=== PATIENT | male | born 1965 | race Caucasian/White ===

== ENCOUNTER 2022-12-11 22:01 | Emergency (ER) | payer OTHER ==
--- NOTE | 2022-12-11 22:08 | ERPHSYRPT ---
- History of Present Illness Time Seen by Provider: 12/11/22 22:06 Historian: patient Exam Limitations: no limitations Physician History: This is a 57-year-old white male patient of Dr. Camilo who presents with central, substernal mild ache/pressure that radiates up into his neck bilaterally. It has been present relatively constantly since 10 to 10:30 PM on 12/10/2022. Patient has no cardiac history. He does have a history of hyperlipidemia. He has never had a diagnosis of coronary artery disease. He has no history of family history of blood clots. He was having some associated shortness of breath as well. He has not had a fever or cough. He has had no vo miting or diarrhea. He denies abdominal pain. It is present even at rest. He has not had any recent surgery. Patient took 4 baby aspirin at about 1700 this afternoon Timing/Duration: yesterday Activities at Onset: none Quality: aching, pressure Location: substernal, central Chest Pain Radiation: neck Severity of Pain-Max: mild Severity of Pain-Current: mild Modifying Factors: Improves With: nothing Associated Symptoms: shortness of breath (Mild) Prior Chest Pain/Cardiac Workup: no prior chest pain, no prior cardiac workup Nitro Today/Relief: no nitro taken today Aspirin Treatment Today: 81 mg x 4, provided at home (1700 this afternoon) Allergies/Adverse Reactions: bee pollen Adverse Reaction (Intermediate, Verified 12/11/22 22:19) Swelling Home Medications: Atorvastatin Calcium 40 mg PO HS 12/11/22 [History] PARoxetine HCL [Paxil] 30 mg PO HS 12/11/22 [History] Travel Risk - International Travel Have you traveled outside of the country in past 3 weeks: No - Coronavirus Screening Are you exhibiting any of the following symptoms?: No Close contact with a COVID-19 positive Pt in past 14-21 Days: No - Review of Systems Constitutional: No Symptoms Eyes: No Symptoms Ears, Nose, & Throat: No Symptoms Respiratory: Dyspnea Cardiac: Chest Pain Abdominal/Gastrointestinal: No Symptoms Genitourinary Symptoms: No Symptoms Musculoskeletal: No Symptoms (Mild) Skin: No Symptoms Neurological: No Symptoms Psychological: No Symptoms Endocrine: No Symptoms Hematologic/Lymphatic: No Symptoms Immunological/Allergic: No Symptoms All Other Systems: Reviewed and Negative - Past Medical History Pertinent Past Medical History: Yes - Past Surgical History Past Surgical History: Yes - Nursing Vital Signs Nursing Vital Signs: Initial Vital Signs Temperature 98.7 F 12/11/22 22:02 Pulse Rate 94 H 12/11/22 22:02 Respiratory Rate 20 12/11/22 22:02 Blood Pressure 144/88 12/11/22 22:02 O2 Sat by Pulse Oximetry 96 12/11/22 22:02 Pain Scale Pain Intensity 0 - Physical Exam General Appearance: no apparent distress, alert, anxiety, obese Eye Exam: PERRL/EOMI, eyes nml inspection Ears, Nose, Throat Exam: normal ENT inspection, moist mucous membranes Neck Exam: normal inspection, non-tender, supple, full range of motion Respiratory Exam: normal breath sounds, chest tenderness, lungs clear, airway intact, No respiratory distress Cardiovascular Exam: regular rate/rhythm, normal heart sounds, normal peripheral pulses Gastrointestinal/Abdomen Exam: soft, normal bowel sounds, No tenderness Rectal Exam: not done Back Exam: normal inspection, normal range of motion, No CVA tenderness, No vertebral tenderness Extremity Exam: normal inspection, normal range of motion, pelvis stable Neurologic Exam: alert, oriented x 3, cooperative, 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 nml as tested, normal mood/affect, nml cerebellar function, nml station & gait, sensation nml Skin Exam: normal color, warm, dry Lymphatic Exam: No adenopathy SpO2 Interpretation: normal SpO2: 96 O2 Delivery: Room Air - Course Nursing assessment & vital signs reviewed: Yes EKG Interpreted by Me: RATE (89), Sinus Rhythm, NORMAL AXIS, NORMAL INTERVALS, NORMAL QRS, NORMAL ST-T, Other Ordered Tests: Active Orders 24 hr Category Date Time Status Gas Torch Solderer STAT Care 12/11/22 22:26 Active EKG-ER Only STAT Care 12/11/22 22:25 Active IV Insertion STAT Care 12/11/22 22:25 Active Pulse Oximetry (ED) STAT Care 12/11/22 22:25 Active CHEST 1 VIEW (PORTABLE) Stat Exams 12/11/22 22:47 Taken CBC W DIFF Stat Lab 12/11/22 22:20 Completed CMP Stat Lab 12/11/22 22:20 Completed D-DIMER QUANTITATIVE Stat Lab 12/11/22 22:20 Completed NT PRO BNPII Stat Lab 12/11/22 22:20 Completed PROTIME WITH INR Stat Lab 12/11/22 22:20 Completed TROPONIN Q4H Lab 12/11/22 22:20 Completed TROPONIN Q4H Lab 12/12/22 01:30 Completed TROPONIN Q4H Lab 12/12/22 06:30 Ordered Medication Summary Discontinued Medications Generic Name Dose Route Start Last Admin Trade Name Magan PRN Reason Stop Dose Admin Ceftriaxone Sodium/Dextrose 1 g in 50 mls @ 100 mls/hr 12/11/22 23:00 12/12 01:56 Rocephin 1 Gm-D5w 50 Ml Bag IV 12/11/22 23:29 Infused STAT STA Infusion Ceftriaxone Sodium/Dextrose Confirm 12/11/22 23:03 Rocephin 1 Gm-D5w 50 Ml Bag Administered 12/11/22 23:04 Dose 1 g in 50 mls @ ud IV .STK-MED ONE Morphine Sulfate 2 mg 12/11/22 22:25 12/11/22 22:30 Morphine Sulfate 2 Mg/Ml Inj IV 12/11/22 22:26 2 mg STAT ONE Administration Morphine Sulfate Confirm 12/11/22 22:30 Morphine Sulfate 2 Mg/Ml Inj Administered 12/11/22 22:31 Dose 2 mg .ROUTE .STK-MED ONE Ondansetron HCl 4 mg 12/11/22 22:25 12/11/22 22:30 Ondansetron Hcl 4 Mg/2 Ml Vial IV 12/11/22 22:26 4 mg STAT ONE Administration Ondansetron HCl Confirm 12/11/22 22:29 Ondansetron Hcl 4 Mg/2 Ml Vial Administered 12/11/22 22:30 Dose 4 mg .ROUTE .STK-MED ONE Lab/Rad Data: Laboratory Result Diagrams 12/11/22 22:20 12/11/22 22:20 Laboratory Results 12/12/22 12/11/22 12/11/22 Range/Units 01:30 22:47 22:20 WBC (4.0-10.5) x10^3/uL RBC (4.1-5.6) x10^6/uL Hgb (12.5-18.0) g/dL Hct (42-50) % MCV (78-100) fL MCH (26-32) pg MCHC (32-36) g/dL RDW (11.5-14.0) % Plt Count (150-450) x10^3/uL MPV (7.5-11.0) fL Gran % (36.0-66.0) % Immature Gran % (Auto) (0.00-0.4) % Nucleat RBC Rel Count (0.00-0.1) % Eos # (Auto) (0-0.5) x10^3/uL Immature Gran # (Auto) (0.00-0.03) x10^3u/L Absolute Lymphs (auto) (1.0-4.6) x10^3/uL Absolute Monos (auto) (0.0-1.3) x10^3/uL Absolute Nucleated RBC (0.00-0.01) x10^3u/L Lymphocytes % (24.0-44.0) % Monocytes % (0.0-12.0) % Eosinophils % (0.00-5.0) % Basophils % (0.0-0.4) % Absolute Granulocytes (1.4-6.9) x10^3/uL Basophils # (0-0.4) x10^3/uL PT (9.4-12.5) SECONDS INR (0.8-3.0) D-Dimer (0.0-0.50) mg/L Sodium (137-145) mmol/L Potassium (3.5-5.1) mmol/L Chloride (98-107) mmol/L Carbon Dioxide (22-30) mmol/L Anion Gap (5-15) MEQ/L BUN (9-20) mg/dL Creatinine (0.66-1.25) mg/dL Estimated GFR ML/MIN Glucose (74-106) mg/dL Calcium (8.4-10.2) mg/dL Total Bilirubin (0.2-1.3) mg/dL AST (17-59) U/L ALT (0-50) U/L Alkaline Phosphatase (38-126) U/L Troponin I < 0.012 (0.000-0.034) ng/mL NT-Pro-B Natriuret Pep 72.8 (<300) pg/mL Serum Total Protein (6.3-8.2) g/dL Albumin (3.5-5.0) g/dL Influenza Type A Ag NEGATIVE (NEGATIVE) Influenza Type B Ag NEGATIVE (NEGATIVE) RSV (PCR) NEGATIVE (NEGATIVE) SARS-CoV-2 (PCR) NEGATIVE (NEGATIVE) 12/11/22 12/11/22 12/11/22 Range/Units 22:20 22:20 22:20 WBC (4.0-10.5) x10^3/uL RBC (4.1-5.6) x10^6/uL Hgb (12.5-18.0) g/dL Hct (42-50) % MCV (78-100) fL MCH (26-32) pg MCHC (32-36) g/dL RDW (11.5-14.0) % Plt Count (150-450) x10^3/uL MPV (7.5-11.0) fL Gran % (36.0-66.0) % Immature Gran % (Auto) (0.00-0.4) % Nucleat RBC Rel Count (0.00-0.1) % Eos # (Auto) (0-0.5) x10^3/uL Immature Gran # (Auto) (0.00-0.03) x10^3u/L Absolute Lymphs (auto) (1.0-4.6) x10^3/uL Absolute Monos (auto) (0.0-1.3) x10^3/uL Absolute Nucleated RBC (0.00-0.01) x10^3u/L Lymphocytes % (24.0-44.0) % Monocytes % (0.0-12.0) % Eosinophils % (0.00-5.0) % Basophils % (0.0-0.4) % Absolute Granulocytes (1.4-6.9) x10^3/uL Basophils # (0-0.4) x10^3/uL PT 10.8 (9.4-12.5) SECONDS INR 0.99 (0.8-3.0) D-Dimer 0.21 (0.0-0.50) mg/L Sodium 140 (137-145) mmol/L Potassium 4.1 (3.5-5.1) mmol/L Chloride 103 (98-107) mmol/L Carbon Dioxide 26 (22-30) mmol/L Anion Gap 15.5 H (5-15) MEQ/L BUN 18 (9-20) mg/dL Creatinine 1.18 (0.66-1.25) mg/dL Estimated GFR > 60.0 ML/MIN Glucose 98 (74-106) mg/dL Calcium 8.8 (8.4-10.2) mg/dL Total Bilirubin 0.50 (0.2-1.3) mg/dL AST 36 (17-59) U/L ALT 35 (0-50) U/L Alkaline Phosphatase 95 (38-126) U/L Troponin I < 0.012 (0.000-0.034) ng/mL NT-Pro-B Natriuret Pep (<300) pg/mL Serum Total Protein 7.8 (6.3-8.2) g/dL Albumin 4.5 (3.5-5.0) g/dL Influenza Type A Ag (NEGATIVE) Influenza Type B Ag (NEGATIVE) RSV (PCR) (NEGATIVE) SARS-CoV-2 (PCR) (NEGATIVE) 12/11/22 Range/Units 22:20 WBC 12.0 H (4.0-10.5) x10^3/uL RBC 4.98 (4.1-5.6) x10^6/uL Hgb 15.2 (12.5-18.0) g/dL Hct 46.3 (42-50) % MCV 93.0 (78-100) fL MCH 30.5 (26-32) pg MCHC 32.8 (32-36) g/dL RDW 13.4 (11.5-14.0) % Plt Count 279 (150-450) x10^3/uL MPV 9.6 (7.5-11.0) fL Gran % 67.1 H (36.0-66.0) % Immature Gran % (Auto) 0.2 (0.00-0.4) % Nucleat RBC Rel Count 0.0 (0.00-0.1) % Eos # (Auto) 0.07 (0-0.5) x10^3/uL Immature Gran # (Auto) 0.02 (0.00-0.03) x10^3u/L Absolute Lymphs (auto) 2.96 (1.0-4.6) x10^3/uL Absolute Monos (auto) 0.84 (0.0-1.3) x10^3/uL Absolute Nucleated RBC 0.00 (0.00-0.01) x10^3u/L Lymphocytes % 24.6 (24.0-44.0) % Monocytes % 7.0 (0.0-12.0) % Eosinophils % 0.6 (0.00-5.0) % Basophils % 0.5 (0.0-0.4) % Absolute Granulocytes 8.07 H (1.4-6.9) x10^3/uL Basophils # 0.06 (0-0.4) x10^3/uL PT (9.4-12.5) SECONDS INR (0.8-3.0) D-Dimer (0.0-0.50) mg/L Sodium (137-145) mmol/L Potassium (3.5-5.1) mmol/L Chloride (98-107) mmol/L Carbon Dioxide (22-30) mmol/L Anion Gap (5-15) MEQ/L BUN (9-20) mg/dL Creatinine (0.66-1.25) mg/dL Estimated GFR ML/MIN Glucose (74-106) mg/dL Calcium (8.4-10.2) mg/dL Total Bilirubin (0.2-1.3) mg/dL AST (17-59) U/L ALT (0-50) U/L Alkaline Phosphatase (38-126) U/L Troponin I (0.000-0.034) ng/mL NT-Pro-B Natriuret Pep (<300) pg/mL Serum Total Protein (6.3-8.2) g/dL Albumin (3.5-5.0) g/dL Influenza Type A Ag (NEGATIVE) Influenza Type B Ag (NEGATIVE) RSV (PCR) (NEGATIVE) SARS-CoV-2 (PCR) (NEGATIVE) - Progress Progress: improved Air Movement: good Progress Note: 12/11/22 23:02 Chest x-ray was interpreted by me. There is no evidence of any acute cardiopulmonary process. This patient's medical issue is 1 of moderate complexity. The level of complexity in the work-up performed was based on the review of the patient's past medical history, review of the patient's medication list, review of the patient's drug allergy list, history of present illness, and physical findings on examination. The work-up performed includes a twelve-lead EKG, chest x-ray, CBC, CMP, D-dimer and troponin levels. I reviewed and interpreted the results of the studies. The patient does have a leukocytosis and he has some shortness of breath. His troponin and D-dimer and electrolytes are within normal limits. I did discuss with him the recommendation and benefit of waiting for 3-hour troponin and twelve-lead EKG. He is unsure if he wants to wait. I discussed with him the risk benefits and alternatives to staying and leaving the hospital. I told him he would have to sign out AGAINST MEDICAL ADVICE. Him and his are having a discussion at this time. I will provide him with 1 g of Rocephin intravenously because of his symptoms of shortness of breath and the fact he has leukocytosis of unknown origin. 12/12/22 02:08 repeat 12 lead interpreted by me. no acute ischemia. 3 hr troponin wnl Blood Culture(s) Obtained: No Antibiotics given: Yes Counseled pt/family regarding: lab results, diagnosis, need for follow-up, rad results Medical Desision Making - Independent Historian Additional History obtained from: Spouse - Discussion of managment Reviewed:: Test results Agreed on:: Treatment plan, need for follow-up - Diagnostic Testing Diagnostic test were ordered, analyzed, and reviewed by me: Yes Radiological Interpretation: Interpreted by me - Risk of complications The pt has a mod risk of morbidity or mortality based on: Need for prescription drug management - Departure Departure Disposition: Home Clinical Impression: Chest pain, Shortness of breath, Leukocytosis Condition: Stable Critical Care Time: No Referrals: DAILY CAMILO MD [Primary Care Provider] - Follow up/PCP as directed Instructions: Shortness of Breath (Dyspnea), Chest Pain, Adult ED Additional Instructions: take medication as prescribed. call primary doctor today to make arrangements for follow up evalutation Prescriptions: Cefdinir 300 mg PO BID #14 cap
[2022-12-11] MEDS ORDERED: Zofran 4 MG/2 ML VIAL IV ONE (22:25)
[2022-12-11] MEDS ORDERED: MORPHINE SULFATE 2 MG INJ IV ONE (22:25)
[2022-12-11] MEDS ORDERED: Zofran 4 MG/2 ML VIAL ONE (22:29)
[2022-12-11] MEDS ORDERED: MORPHINE SULFATE 2 MG INJ ONE (22:30)
[2022-12-11 22:31] LABS: Absolute Neutrophil Ct (ANC) 8.07 x10^3/uL (1.4-6.9); BASOPHIL % 0.5 % (0.0-0.4); Basophil (Absolute #) 0.06 x10^3/uL (0-0.4); Eosinophil % 0.6 % (0.00-5.0); Eosinophil (Absolute #) 0.07 x10^3/uL (0-0.5); Hematocrit 46.3 % (42-50); Hemoglobin 15.2 g/dL (12.5-18.0); IMMATURE GRAN # 0.02 x10^3u/L (0.00-0.03); IMMATURE GRAN % 0.2 % (0.00-0.4); Lymphocyte (Absolute #) 2.96 x10^3/uL (1.0-4.6); Lymphocytes % 24.6 % (24.0-44.0); Mean Corpuscular Hemoglobin 30.5 pg (26-32); Mean Corpuscular Hgb Concent. 32.8 g/dL (32-36); Mean Platelet Volume 9.6 fL (7.5-11.0); Monocyte (Absolute #) 0.84 x10^3/uL (0.0-1.3); Neutrophil % 67.1 % (36.0-66.0); Platelet Count 279 x10^3/uL (150-450); Red Blood Count 4.98 x10^6/uL (4.1-5.6); Red Cell Distribution Width 13.4 % (11.5-14.0)
[2022-12-11 22:38] LABS: ALBUMIN 4.5 g/dL (3.5-5.0); ALKALINE PHOSPHATASE 95 U/L (38-126); ANION GAP 15.5 MEQ/L (5-15); BLOOD UREA NITROGEN 18 mg/dL (9-20); CHLORIDE 103 mmol/L (98-107); Calcium 8.8 mg/dL (8.4-10.2); Carbon Dioxide 26 mmol/L (22-30); Creatinine 1 1.18 mg/dL (0.66-1.25); EST GLOMERULAR FILTRATION RATE > 60.0 ML/MIN; Glucose 98 mg/dL (74-106); Potassium 4.1 mmol/L (3.5-5.1); SGOT/AST 36 U/L (17-59); SGPT/ALT 35 U/L (0-50); SODIUM 140 mmol/L (137-145); Total Protein 7.8 g/dL (6.3-8.2)
[2022-12-11 22:42] LABS: D-DIMER QUANTITATIVE 0.21 mg/L (0.0-0.50); INR 0.99 (0.8-3.0); PROTIME 10.8 SECONDS (9.4-12.5)
[2022-12-11] MEDS ORDERED: ROCEPHIN 1 Gm-D5w 50 ml Bag** 1 G/50 ML IVPB IV STA (23:00)
[2022-12-11] MEDS ORDERED: ROCEPHIN 1 Gm-D5w 50 ml Bag** 1 G/50 ML IVPB IV ONE (23:03)
[2022-12-11 23:24] LABS: INFLUENZA A NEGATIVE (NEGATIVE); INFLUENZA B NEGATIVE (NEGATIVE); RESPIRATORY SYNCTIAL VIRUS NEGATIVE (NEGATIVE); SARS-CoV-2 Xpert Express NEGATIVE (NEGATIVE)
[2022-12-12 02:08] VITALS: BP 127/79; PULSE 77
[2022-12-12 02:12] VITALS: O2SAT 96
--- NOTE | 2022-12-12 08:43 | XRAY ---
Indication: Chest pain. Comparison: None Portable apical lordotic chest demonstrates a few tiny calcified granulomas and minimal bibasilar subsegmental atelectasis/scarring. No focal infiltrate, consolidation, or large effusion. Heart not enlarged. Bony thorax intact. Impression: Nonacute chest with chronic features.
== END 2022-12-12 02:16 | disposition home or self-care (01) ==
LOC: ED 22:01
DX: R07.9 Chest pain, unspecified (principal); R06.02 Shortness of breath; D72.829 Elevated white blood cell count, unspecified; E78.5 Hyperlipidemia, unspecified; Z79.899 Other long term (current) drug therapy
CPT/HCPCS: 0241U; 36000; 36415; 71045; 80053; 83880; 84484; 85025; 85379; 85610; 93005; 93041; 94760; 96374; 96375; 99284; J0696; J2270; J2405